=== PATIENT | male | born 1960 | race African-American/Black ===

== ENCOUNTER 2020-11-23 14:12 | Inpatient (IN) | payer MEDICARE, OTHER ==
[~2020-11-23] VITALS: Ht 182.9 cm; Wt 112.5 kg
--- NOTE | 2020-11-23 14:15 | NUR ---
Patient brought from [facility] for placemnet in [facility] mental health unit, transported via [facility] benigno ceron MD at bedside for assessment
[2020-11-23] MEDS ORDERED: METF-442 PO (14:26)
[2020-11-23] MEDS ORDERED: THIA100T13 PO (14:26)
[2020-11-23] MEDS ORDERED: MULT-213 PO (14:26)
[2020-11-23] MEDS ORDERED: QUET100T PO (14:26)
[2020-11-23] MEDS ORDERED: INSU100V7 SQ (14:26)
[2020-11-23] MEDS ORDERED: FOLIC ACID PO (14:26)
[2020-11-23] MEDS ORDERED: INSU100V39 SQ (14:26)
[2020-11-23 15:16] LABS: BASOPHILS % (AUTO) 0.3 % (0.0-2.0); EOSINOPHILS # (AUTO) 0.2 K/uL (0.0-0.7); EOSINOPHILS % (AUTO) 4.2 % (0.0-7.0); LYMPHOCYTES # (AUTO) 1.2 K/uL (20.0-40.0); MEAN CORPUSCULAR HEMOGLOBIN 30.3 uug (23.8-33.4); MEAN CORPUSCULAR HGB CONC 33 g/dL (32.5-36.3); MEAN CORPUSCULAR VOLUME 93.2 fL (73.0-96.2); MONOCYTES # (AUTO) 0.5 K/uL (2.0-10.0); MONOCYTES % (AUTO) 9.8 % (0.0-11.0); NEUTROPHILS # (AUTO) 3.6 K/uL (1.8-8.9); NEUTROPHILS % (AUTO) 64.7 % (38.5-71.5); PLATELET COUNT (AUTO) 222 K/uL (152-348); RED BLOOD CELL COUNT(AUTO) 4.61 MIL/uL (4.06-5.63); WHITE BLOOD COUNT (AUTO) 5.5 K/uL (3.6-10.2)
[2020-11-23 15:18] LABS: CARBON DIOXIDE 29 mmol/L (21-32); CHLORIDE 100 mmol/L (98-107); CREATININE 1.1 mg/dL (0.6-1.3); GLUCOSE 163 mg/dL (74-106); POTASSIUM 3.8 mmol/L (3.5-5.1); UREA NITROGEN, BLOOD 13 mg/dL (7-18)
[2020-11-23 15:21] LABS: ETHANOL < 3 MG/DL (0-0)
[2020-11-23 15:23] LABS: ALANINE AMINOTRANSFERASE 25 U/L (16-63); ALKALINE PHOSPHATASE 64 U/L (50-136); ASPARTATE AMINOTRANSFERASE 15 U/L (15-37); BILIRUBIN,DIRECT 0.1 mg/dL (0.0-0.2); BILIRUBIN,TOTAL 0.2 mg/dL (0.2-1.0); TOTAL PROTEIN, SERUM 6.5 g/dL (6.4-8.2)
[2020-11-23 15:24] LABS: ACETAMINOPHEN < 2.0 ug/mL (10-30)
--- NOTE | 2020-11-23 15:55 | NUR ---
PT WAS EVALUATED BY DR SOOD. PT WAS TRANSFERED TO ROOM #141A IN [facility]. REPORT GIVEN TO MENTAL HEALTH RN.
[2020-11-23 16:00] VITALS: BP 117/75
--- NOTE | 2020-11-23 16:10 | NUR ---
Pt received from ER by on 5149. According to the hold, pt went to ER and stated that he is hearing voices commanding him to hurt self and he was not feeling safe to leave the hospital. Upon face to face evaluation, Pt is A/O x 3. Pt admits feeling suicidal recently, but states he does not have s.i. now and he was able to contract for safety. Pt states that His trigger to his depression was social isolation and drinking and doing drugs. Pt states that he lives in [facility] by he does not have any family there and he came to [place] to be with his friends, but not able to do so and he was drinking and became depressed. Pt states that he wants to go to a rehab to address his addiction problems. Pt was cooperative, able to sign paperwork. Pt refused his family to be notified. skin check was done, pt was oriented to the unit, his right were explained.
[2020-11-23] MEDS ORDERED: MAGNESIUM HYDROXIDE 30 ML LIQUID UDC PO PRN (16:15)
[2020-11-23] MEDS ORDERED: LORAZEPAM 0.5 MG TABLET PO PRN (16:15)
[2020-11-23] MEDS ORDERED: BLOOD SUGAR DIAGNOSTIC 1 EACH STRIP VI ONE (16:15)
[2020-11-23] MEDS ORDERED: MAG HYDROX/AL HYDROX/SIMETH 30 ML LIQUID UDC PO PRN (16:15)
[2020-11-23] MEDS ORDERED: ACETAMINOPHEN 325 MG TABLET PO PRN (16:15)
[2020-11-23] MEDS ORDERED: TEMAZEPAM 7.5 MG CAPSULE PO PRN (16:15)
[2020-11-23] MEDS ORDERED: DEXTROSE 50% 50 ML DISP.SYRIN IV PRN (16:15)
[2020-11-23] MEDS: BLOOD SUGAR DIAGNOSTIC 1 EACH STRIP VI SCH ×2 (16:54→20:48)
[2020-11-23 20:25] VITALS: BP 124/81
[2020-11-23 20:28] VITALS: BP 102/66
[2020-11-23] MEDS: INSULIN GLARGINE,HUM 300 UNITS/3 ML CARTRIDGE SQ SCH (20:50)
[2020-11-23] MEDS: INSULIN REGULAR, HUMAN 300 UNIT/3 ML VIAL SQ PRN (20:51)
--- NOTE | 2020-11-24 05:59 | NUR ---
Shift End Report: Calm and cooperative, compliant to plan of care. Ambulatory, No s/s of hypo/hyperglycemia. Compliant to plan of care. Slept 8.15 hours. Continue current plan of care.
[2020-11-24] MEDS: BLOOD SUGAR DIAGNOSTIC 1 EACH STRIP VI SCH ×4 (06:24→20:15)
[2020-11-24 07:30] VITALS: BP 116/74
[2020-11-24] MEDS: FOLIC ACID 1 MG TABLET PO SCH (08:13)
[2020-11-24] MEDS: MULTIVIT, IRON, MIN NO. 8, FA TABLET PO SCH (08:13)
[2020-11-24] MEDS: THIAMINE HCL 100 MG TABLET PO SCH (08:14)
[2020-11-24] MEDS: INSULIN REGULAR, HUMAN 300 UNIT/3 ML VIAL SQ PRN ×3 (08:14→20:20)
[2020-11-24] MEDS ORDERED: INFLUENZA VACCINE 2020-2021 0.5 ML DISP.SYRIN IM ONE (08:45)
--- NOTE | 2020-11-24 09:00 | NUR ---
AWAKE ALERT COOPERATIVE AND COMPLIANT WITH MEDICATIONS ABLE TO AMBULATE TO DESIRED DESTINATIONS DENIES PAIN OR DISCOMFORTS NO S/S OFHYPO/HYPERGLYCEMIC REACTIONS AT THIS TIME WILL CONTINUE TO PROVIDE SAFE AND THERAPEUTIC ENVIRONMENT AT ALL TIMES.
[2020-11-24] MEDS ORDERED: LORAZEPAM 0.5 MG TABLET PO PRN (10:30)
--- NOTE | 2020-11-24 10:30 | NUR ---
FLU VACCINE GIVEN LEFT DELTOID ORDERED AFEBRILE AT THIS TIME.
[2020-11-24 16:00] VITALS: BP 108/66
--- NOTE | 2020-11-24 18:00 | NUR ---
VERY QUIET AND WITHDRAWN BUT ANSWERS QUESTIONS WHEN SPOKEN TO NO S/S OF HYPO/HYPERGLYCEMIC REACTIONS WILL CONTINUE TO OBSERVE AND PROVIDE SAFE AND THERAPEUTIC ENVIRONMENT AT ALL TIMES.
[2020-11-24] MEDS: QUETIAPINE FUMARATE 100 MG TABLET PO SCH (20:15)
[2020-11-24] MEDS: INSULIN GLARGINE,HUM 300 UNITS/3 ML CARTRIDGE SQ SCH (20:18)
[2020-11-24 20:26] VITALS: BP 110/70
[2020-11-24] MEDS: ATORVASTATIN 10 MG TABLET PO SCH (20:52)
--- NOTE | 2020-11-25 06:03 | NUR ---
Received patient in the day room watching TV and waiting for a snack. When asked , patient denied hearing voices at that time and denied SI. Total sleep hour were 7.45. Monitoring for safety, SI and any behavioral issues. Reception Interviewer noticed that patient had minimal interaction with peers and is somewhat isolative.
[2020-11-25] MEDS: BLOOD SUGAR DIAGNOSTIC 1 EACH STRIP VI SCH ×4 (06:29→20:08)
[2020-11-25 07:30] VITALS: BP 100/60
[2020-11-25] MEDS: SERTRALINE HCL 50 MG TABLET PO SCH (08:13)
[2020-11-25] MEDS: THIAMINE HCL 100 MG TABLET PO SCH (08:13)
[2020-11-25] MEDS: FOLIC ACID 1 MG TABLET PO SCH (08:13)
[2020-11-25] MEDS: MULTIVIT, IRON, MIN NO. 8, FA TABLET PO SCH (08:13)
[2020-11-25] MEDS: INSULIN REGULAR, HUMAN 300 UNIT/3 ML VIAL SQ PRN ×4 (08:16→20:10)
[2020-11-25 15:26] VITALS: BP 105/54
--- NOTE | 2020-11-25 17:00 | NUR ---
PATIENT IS ALERT ANS AWARE OF WHATS HAPPENING BUT HE IS DEPRESSED AND ISOLATES SELF SEEN MOST OF THE DAY IN HIS ROOM IN BED BUT WILL AT TIMES GO INTO THE D/ROOM AND WATCHES TV DOES NOT SEEM TO BE INTERESTED IN COMMUNICATING WITH OTHER PATIENTS BUT HE IS COMPLIANT WITH MEDICATIONS AND CARE DENIES SI WILL CONTINUE TO OBSERVE.
[2020-11-25] MEDS: INSULIN GLARGINE,HUM 300 UNITS/3 ML CARTRIDGE SQ SCH (20:11)
[2020-11-25] MEDS: QUETIAPINE FUMARATE 100 MG TABLET PO SCH (20:13)
[2020-11-25] MEDS: ATORVASTATIN 10 MG TABLET PO SCH (20:13)
[2020-11-25 20:21] VITALS: BP 118/66
--- NOTE | 2020-11-26 05:56 | NUR ---
Patient slept for a total of 7.30 hours last night. Although patient is around peers physically, he seems to keep to himself with no interactions. Patient denied SI and also denied command hallucinations at this time. Safety precautions in place and frequent rounds made. No behavioral issues noted at this time.
[2020-11-26] MEDS: BLOOD SUGAR DIAGNOSTIC 1 EACH STRIP VI SCH ×4 (06:21→20:34)
[2020-11-26 07:30] VITALS: BP 103/64
[2020-11-26] MEDS: MULTIVIT, IRON, MIN NO. 8, FA TABLET PO SCH (08:17)
[2020-11-26] MEDS: FOLIC ACID 1 MG TABLET PO SCH (08:17)
[2020-11-26] MEDS: THIAMINE HCL 100 MG TABLET PO SCH (08:17)
[2020-11-26] MEDS: SERTRALINE HCL 50 MG TABLET PO SCH ×2 (08:17→20:14)
[2020-11-26] MEDS: INSULIN REGULAR, HUMAN 300 UNIT/3 ML VIAL SQ PRN ×3 (08:19→20:43)
--- NOTE | 2020-11-26 09:58 | NUR ---
patient alert and oriented. he is cooperative but is guarded, quiet, and withdrawn. patient provides minimal disclosure during assessment, just states "yes" or "no" without providing further information. patient denies SI/HI, denies AH/VH, but appears internally preoccupied. patient is adherent with medication, no adverse reaction noted. patient is unkempt. patient encouraged to participate in the unit milieu. patient is able to perform self care and ADL's independently. provided with education about impulse control and safety.
--- NOTE | 2020-11-26 10:54 | NUR ---
Substance Abuse Intervention: Patient was provided with a brief substance abuse intervention for cocaine and alcohol use. Patient wanted resources from this SW. Patient was provided with resources: [facility] Substance Abuse Self-helpline ([phone]); [facility] [address] [place] [address] ([phone]); [address] [address] ([phone]); [facility] ([phone]); [facility] ([phone]); [facility] ([phone]); [facility] ([phone]).
--- NOTE | 2020-11-26 10:54 | NUR ---
Initial Discharge Plan: Patient currently resides at [address] [place] [address] and resides at home. Patient did not share any family information to contact. Patient would want to return back home with resources upon discharge. This SW will work with the MD and treatment team to help coordinate proper discharge.
--- NOTE | 2020-11-26 11:04 | NUR ---
Firearms Report: Veterinary Laboratory Diagnostician completed and submitted a [employer] firearms report for 5150 grave disability certification. A copy of report has been placed in patient chart.
--- NOTE | 2020-11-26 12:03 | NUR ---
Individual Counseling: apartment maintenance worker met with patient for brief counseling. apartment maintenance worker assessed for patient's level of suicidality. Patient appeared withdrawn and isolative in his room. Patient presented depressed. This SW assessed for SI and patient stated that he continues to hear voices and that the voices tell him to "hurt himself". Patient was unable to verbalize what the voices were telling him. Patient stated that he will not hurt himself. This SW will provide resources for patient patient such as [facility] Crisis Line ( ), [place] Suicide Prevention Lifeline ( ) , [facility] Substance Abuse Helpline ( ). This senior copywriter encouraged patient to alert either this senior copywriter or charge nurse. This SW actively listened and provided comfort.
[2020-11-26 15:23] VITALS: BP 115/70
[2020-11-26] MEDS: QUETIAPINE FUMARATE 100 MG TABLET PO SCH (20:13)
[2020-11-26] MEDS: ATORVASTATIN 10 MG TABLET PO SCH (20:16)
[2020-11-26 20:20] VITALS: BP 112/66
[2020-11-26] MEDS: INSULIN GLARGINE,HUM 300 UNITS/3 ML CARTRIDGE SQ SCH (20:40)
[2020-11-27] MEDS: BLOOD SUGAR DIAGNOSTIC 1 EACH STRIP VI SCH ×4 (06:34→20:27)
[2020-11-27 08:25] VITALS: BP 134/74
[2020-11-27] MEDS: THIAMINE HCL 100 MG TABLET PO SCH (09:14)
[2020-11-27] MEDS: MULTIVIT, IRON, MIN NO. 8, FA TABLET PO SCH (09:14)
[2020-11-27] MEDS: FOLIC ACID 1 MG TABLET PO SCH (09:14)
--- NOTE | 2020-11-27 10:00 | NUR ---
Received pt in bed in assigned room, A&Ox3, noted guarded and withdrawn. Pt denies SI/HI/AH/VH. Pt able to verbally CFS. Upon interview, pt provided mostly "yes" and "no" answers. Encouraged pt to express feelings and participate in milieu therapy. Pt adherent with prescribed medications, no a/r noted. Pt able to ambulate safely and perform self care. Safe environment ensured. Will continue to monitor.
[2020-11-27 10:55] LABS: *BILIRUBIN,URIN NEGATIVE (NEGATIVE); *BLOOD, URINE NEGATIVE (NEGATIVE); *CLARITY,URINE CLEAR (CLEAR); *COLOR,URINE YELLOW (YELLOW); *KETONES,URINE NEGATIVE (NEGATIVE); *UROBILINOGEN,URINE 0.2 E.U./dl (NORMAL); LEUKOCYTE ESTERASE ,URINE NEGATIVE (NEGATIVE); NITRITE, URINE NEGATIVE (NEGATIVE); PH,URINE 5.5 (5.0-8.0); UGLUCOSE NEGATIVE (NEGATIVE)
--- NOTE | 2020-11-27 11:32 | NUR ---
Court Hearing: Patient's court hearing is today and it was upheld for GD.
[2020-11-27] MEDS: INSULIN REGULAR, HUMAN 300 UNIT/3 ML VIAL SQ PRN ×2 (12:30→20:37)
--- NOTE | 2020-11-27 14:57 | NUR ---
IOP Program: This SW contacted [facility] located at [address] [place] [address]; ([phone]) and spoke with Maisha segura who scheduled an intake evaluation for patient on December 12 at 9:30AM. This SW will also provided additional resources such as [facility] Intensive Outpatient Program (IOP), [facility] ([phone]), and [facility] Detox/Recovery Program ([phone]).
--- NOTE | 2020-11-27 15:21 | NUR ---
Coordination of Care: Patient will be following up with Primary Care Physician Dr. Johnson at [facility] [address], [place] [address] ([phone]) on December 13, 2020 at 2PM.
[2020-11-27 16:00] VITALS: BP 131/75
--- NOTE | 2020-11-27 18:57 | NUR ---
EOSS: Pt in assigned room, awake, calm, guarded. Pt provided open ended answers and talked more during afternoon interview. Pt continued to deny SI/HI/VH/AH. Pt tolerated meals and fluids well. Reassurance and redirection provided PRN. Due medications given per order, no a/r noted. VSS. Pt able to ambulate safely and provide self care. Safe environment and fall precautions maintained. Will endorse care to laminator printed circuit boards nurse.
[2020-11-27 20:14] VITALS: BP 131/80
[2020-11-27] MEDS: SERTRALINE HCL 50 MG TABLET PO SCH (20:20)
[2020-11-27] MEDS: QUETIAPINE FUMARATE 100 MG TABLET PO SCH (20:20)
[2020-11-27] MEDS: ATORVASTATIN 10 MG TABLET PO SCH (20:20)
[2020-11-27] MEDS: INSULIN GLARGINE,HUM 300 UNITS/3 ML CARTRIDGE SQ SCH (20:28)
[2020-11-28] MEDS: BLOOD SUGAR DIAGNOSTIC 1 EACH STRIP VI SCH ×4 (06:34→20:45)
[2020-11-28 07:30] VITALS: BP 102/66
[2020-11-28] MEDS: THIAMINE HCL 100 MG TABLET PO SCH (08:19)
[2020-11-28] MEDS: MULTIVIT, IRON, MIN NO. 8, FA TABLET PO SCH (08:20)
[2020-11-28] MEDS: FOLIC ACID 1 MG TABLET PO SCH (08:20)
--- NOTE | 2020-11-28 11:11 | NUR ---
Individual Counseling: transit worker met with patient for brief counseling. transit worker assessed for patient's level of suicidality. Patient appeared to be less depressed. Patient, however, has been withdrawn and isolative in his room. Patient expressed to this SW that he feels that he is "improving" and that he no longer hears "voices" that tell him to hurt himself. Patient denies SI. This SW actively listened and provided emotional support.
[2020-11-28] MEDS: INSULIN REGULAR, HUMAN 300 UNIT/3 ML VIAL SQ PRN ×2 (11:48→20:54)
[2020-11-28 16:00] VITALS: BP 119/78
--- NOTE | 2020-11-28 19:58 | NUR ---
[facility]: Pt.refused to have his Pna/Flu vaccine when offered despite explanation of risks vs.benefits x3. Pt.to go to [facility] overflow Rm#[id number]. Report given to Mariza MULLEN. left in stable condition.
[2020-11-28 20:00] VITALS: BP 128/68
[2020-11-28] MEDS: QUETIAPINE FUMARATE 100 MG TABLET PO SCH (20:46)
[2020-11-28] MEDS: ATORVASTATIN 10 MG TABLET PO SCH (20:46)
[2020-11-28] MEDS: SERTRALINE HCL 50 MG TABLET PO SCH (20:47)
[2020-11-28] MEDS: INSULIN GLARGINE,HUM 300 UNITS/3 ML CARTRIDGE SQ SCH (20:53)
[2020-11-29 04:07] VITALS: BP 101/59
[2020-11-29] MEDS: BLOOD SUGAR DIAGNOSTIC 1 EACH STRIP VI SCH ×4 (06:35→20:35)
--- NOTE | 2020-11-29 06:45 | NUR ---
PAtient slept well about 6 hrs.Denies SI/HI.Denies pain.No s/s of distress noted. Patient has a 1:1 sitter for safety.
[2020-11-29 07:47] VITALS: BP 105/68
[2020-11-29] MEDS: MULTIVIT, IRON, MIN NO. 8, FA TABLET PO SCH (08:02)
[2020-11-29] MEDS: THIAMINE HCL 100 MG TABLET PO SCH (08:02)
[2020-11-29] MEDS: FOLIC ACID 1 MG TABLET PO SCH (08:02)
[2020-11-29] MEDS: INSULIN REGULAR, HUMAN 300 UNIT/3 ML VIAL SQ PRN ×3 (08:02→20:33)
--- NOTE | 2020-11-29 13:06 | NUR ---
[facility] Contact: This SW received a phone call from PAZ Avila ([phone]) ext. [phone]. Requested for this SW to send discharge notes. This SW faxed discharge notes to Margarita ([phone]).
--- NOTE | 2020-11-29 13:11 | NUR ---
Coordination of Care: Patient will be following up with a psychiatrist and is referred to [facility]. [address] [place] [address] ([phone]) January 29, 2021 at 9:30AM with Dr. Ramon. Addendum: 11/29/20 at 1312 by JAYY PARHAM Patient will be following up with a psychiatrist and is referred to [facility]. [address] [place] [address] ([phone]) January 29, 2021 at 9:30AM with Dr. Ramon.
--- NOTE | 2020-11-29 13:33 | NUR ---
Individual Counseling: insulation worker interior surface met with patient for brief counseling. insulation worker interior surface assessed for patient's level of suicidality. Patient presented with euthymic mood. Patient expressed that he is excited to be going back home. Patient expressed that he no longer hears voices. Patient was provided with outpatient mental health resources to [facility] Crisis Line , and the National Suicide Prevention Lifeline . Patient was encouraged to notify a friend or family if he were to need help at home. SW actively listened, provided resources, and emotional support.
--- NOTE | 2020-11-29 13:59 | NUR ---
[employer] Transportation: This purchased [employer] transportation ticket for patient (ticket #[id number]) for November 30, 2020. Leaving From: [facility] at 4:30PM. Schedule Number: [id number].
--- NOTE | 2020-11-29 14:01 | NUR ---
SW Note: This SW met with patient and discussed transportation directions. Patient was agreeable and aware that he will take taxi to [facility] at 2PM and will be provided with ticket on 11/30.
[2020-11-29 16:00] VITALS: BP 111/65
[2020-11-29 19:39] VITALS: BP 133/74
--- NOTE | 2020-11-29 20:00 | NUR ---
AWAKE ALERT, COOPERATIVE,TOOK ALL MEDICATIONS, RESTING COMFORTABLY. IN NO ACUTE DISTRESS.
[2020-11-29] MEDS: QUETIAPINE FUMARATE 100 MG TABLET PO SCH (20:29)
[2020-11-29] MEDS: ATORVASTATIN 10 MG TABLET PO SCH (20:29)
[2020-11-29] MEDS: SERTRALINE HCL 50 MG TABLET PO SCH (20:29)
[2020-11-29] MEDS: INSULIN GLARGINE,HUM 300 UNITS/3 ML CARTRIDGE SQ SCH (20:32)
[2020-11-30] MEDS: BLOOD SUGAR DIAGNOSTIC 1 EACH STRIP VI SCH ×2 (06:09→11:23)
--- NOTE | 2020-11-30 06:12 | NUR ---
slept 9 hours
[2020-11-30] MEDS: THIAMINE HCL 100 MG TABLET PO SCH (07:36)
[2020-11-30] MEDS: INSULIN REGULAR, HUMAN 300 UNIT/3 ML VIAL SQ PRN ×2 (07:36→11:24)
[2020-11-30] MEDS: FOLIC ACID 1 MG TABLET PO SCH (07:36)
[2020-11-30] MEDS: MULTIVIT, IRON, MIN NO. 8, FA TABLET PO SCH (07:36)
[2020-11-30 07:46] VITALS: BP 96/48
--- NOTE | 2020-11-30 08:03 | NUR ---
Discharge Note: Patient wants to go home located at [address] [place] [address]. Patient will be provided taxi transportation at 2PM to [facility] located at [address] [place] [address]. Patient will be provided with [employer] departing at 4PM and arrive at his final destination [address] [place] [address]. Patient does not have any family members at this time and did not provide any information. Upon discharge, patient appeared alert and oriented x4. Patient appeared happy to be going back home. Patient denies visual/auditory hallucinations. Patient denies suicidal or homicidal ideation. Patient will be following up with (Primary Care Physician) Dr. Johnson at [facility] [address], [place] [address] ([phone]) on December 13, 2020 at 2PM. Patient will be following up with a psychiatrist and is referred to [facility] [address] [place] [address] ([phone]) January 29, 2021 at 9:30AM with Dr. Ramon. This contacted [facility] located at [address] [place] [address]; ([phone]) and spoke with Maisha segura who scheduled an intake evaluation for patient on December 12 at 9:30AM. This will also provide additional resources such as [facility] Intensive Outpatient Program (IOP), [facility] ([phone]), and [facility] Detox/Recovery Program ([phone]). Patient was provided referrals to the following substance abuse programs for cocaine use: [facility] Substance Abuse Self-helpline ([phone]); [facility] [address] [place] [address] ([phone]); [address] [address] ([phone]); [facility] ([phone]); [facility] ([phone]); [facility] ([phone]); [facility] ([phone]). Patient was provided with outpatient mental health resources to [facility] Crisis Line , and the National Suicide Prevention Lifeline . Patient presented with euthymic mood and congruent affect.
--- NOTE | 2020-11-30 13:06 | NUR ---
DC ORDERS RECEIVED NOTED AND CARRIED OUT,DC INSTRUCTION AND EDUCATION GIVEN TO THE PT,PT SAID HE WILL FOLLOW UP WITH HIS PCP .DENIED ANY SI AT THIS TIME,PT LEFT THE FACILITY VIA PRIVATE CAR IN STABLE CONDITION AND IN PROPER CLOTHING
== END 2020-11-30 13:00 | disposition home or self-care (01) | DRG 885 ==
LOC: ER 14:12 → GPS 15:36 → GPSOV3 11-28 19:57
PROVIDERS: ADMIT Psychiatry & Neurology Psychiatry; ATTEND Internal Medicine
DX: F33.3 Major depressive disorder, recurrent, severe with psychotic symptoms (principal); E11.9 Type 2 diabetes mellitus without complications; Z59.0 Homelessness; E66.9 Obesity, unspecified; E78.5 Hyperlipidemia, unspecified; Z79.899 Other long term (current) drug therapy; F14.10 Cocaine abuse, uncomplicated; F10.10 Alcohol abuse, uncomplicated; Y90.9 Presence of alcohol in blood, level not specified; I10 Essential (primary) hypertension; Z79.84 Long term (current) use of oral hypoglycemic drugs; F12.10 Cannabis abuse, uncomplicated; Z68.33 Body mass index [BMI] 33.0-33.9, adult; Z20.822 Contact with and (suspected) exposure to COVID-19
CPT/HCPCS: 36415; 70030-TC; 71045; 85025; 90686; 93005; A4663; G0480; J1815